=== PATIENT | female | born 1955 | race African-American/Black ===

== ENCOUNTER 2018-05-07 09:48 | Emergency (ER) | payer OTHER | END 2018-05-07 12:26 | disposition home or self-care (01) | LOC: FTE 09:48 | DX: S90.32XA Contusion of left foot, initial encounter (principal); I10 Essential (primary) hypertension; J45.909 Unspecified asthma, uncomplicated; W22.8XXA Striking against or struck by other objects, initial encounter; Y92.9 Unspecified place or not applicable | CPT/HCPCS: 73630; 73630-LT; 99283-25 ==